=== PATIENT | male | born 1965 | race American Indian/Alaskan Native ===

== ENCOUNTER 2016-04-29 12:08 | Emergency (ER) | payer MEDICAID, OTHER ==
[2016-04-29 12:15] VITALS: RESP 18; TEMP 98.2; BMI 24.8
[2016-04-29] MEDS ORDERED: Aspirin 325 mg EC Tablets PO STA (12:40)
--- NOTE | 2016-04-29 12:41 | ED PDOC ---
Arrival/HPI - General Chief Complaint: Chest Pain Time Seen by Provider: 04/29/16 12:29 Historian: Patient - History of Present Illness Narrative History of Present Illness (Text): 04/29/16 12:38 A 51 year old male, who denies any past medical history, presents to the emergency department complaining of shortness of breath since last night. Patient reports he woke up from his sleep feeling short of breath and chest tightness. Patient reports he has been taking Sudafed and using a nasal spray for a cold. Patient denies any fever, nausea, vomiting, diarrhea, abdominal pain or any other complaints. PMD: Dr. Newton Time/Duration: Other (Last night) Symptom Course: Unchanged Quality: Other Context: Home Associated Symptoms (Text): 04/29/16 13:07 Patient has had a URI for approximately 1 week. He has been taking Sudafed and Afrin spray with little improvement. Last night he developed shortness of breath and anxiety and chest pain. He had a similar episode approximately 8 months ago. No nausea or vomiting. No diaphoresis. No dizziness or lightheadedness. No fever or chills. No injury or trauma. 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 absent: Sputum, Wheezing Cardiovascular: Chest Pain, Other (Chest tightness). absent: Palpitations, Syncope Gastrointestinal: absent: Abdominal Pain, Diarrhea, Nausea, Vomiting Genitourinary Male: absent: Dysuria Neurological: absent: Headache, Dizziness, Focal Weakness Psychiatric: Anxiety. absent: Depression, Suicidal Ideation Physical Exam Vital Signs Reviewed: Yes Vital Signs Temp Pulse Resp BP Pulse Ox 04/29/16 16:38 58 L 18 126/64 100 04/29/16 13:28 54 L 18 128/69 98 04/29/16 12:14 98.2 F 63 18 130/76 99 04/29/16 12:13 98.3 F 77 16 99 Temperature: Afebrile Blood Pressure: Normal Pulse: Regular Respiratory Rate: Normal Appearance: Positive for: Well-Appearing, Non-Toxic, Comfortable, Other (Anxious ) Pain Distress: None Mental Status: Positive for: Alert and Oriented X 3 - Systems Exam Head: Present: Atraumatic, Normocephalic Pupils: Present: PERRL Extroacular Muscles: Present: EOMI Conjunctiva: Present: Normal Ears: Present: NORMAL TM. No: Erythema, Normal Canal (Mild cerumenosis), TM Bulging Mouth: Present: Moist Mucous Membranes Pharnyx: No: ERYTHEMA, EXUDATE, TONSILS ENLARGED, Peritonsilar Swelling Neck: Present: Normal Range of Motion. No: Meningeal Signs, MIDLINE TENDERNESS , Paraspinal Tenderness Respiratory/Chest: Present: Clear to Auscultation, Good Air Exchange. No: Respiratory Distress, Accessory Muscle Use Cardiovascular: Present: Regular Rate and Rhythm, Normal S1, S2. No: Murmurs Abdomen: Present: Normal Bowel Sounds. No: Tenderness, Distention, Peritoneal Signs, Rebound, Guarding Back: Present: Normal Inspection Upper Extremity: Present: Normal Inspection. No: Cyanosis, Edema Lower Extremity: Present: Normal Inspection. No: Edema Neurological: Present: GCS=15, CN II-XII Intact, Speech Normal, Motor Func Grossly Intact Skin: Present: Warm, Dry, Normal Color. No: Rashes Psychiatric: Present: Alert, Oriented x 3, Normal Insight, Normal Concentration , Anxious Medical Decision Making ED Course and Treatment: 04/29/16 12:38 Impression: A 51 year old male with shortness of breath and chest tightness. Plan: -- Chest xray -- EKG -- Labs -- Aspirin -- Reassess and disposition Progress Notes: 04/29/16 13:09 EKG shows normal sinus rhythm rate approximately [address] and T- wave changes similar to EKG of 10/16/2015 Report Date : 04/29/2016 14:22:15 Procedure: Chest xray Dictator : Maya Tate MD IMPRESSION: COPD. No active disease. 04/29/16 15:20 CT scan of the chest is read by the radiologist is negative for pulmonary embolus 04/29/16 16:20 We will repeat troponin and if normal discharge patient 04/29/16 17:09 Second troponin is negative. Patient will be discharged home to follow up with PMD. Follow up in ER as needed. Daily baby aspirin. Prescription for Zithromax and Tessalon. - Lab Interpretations Lab Results: 04/29/16 13:00 04/29/16 13:00 Lab Results 04/29/16 16:30: Troponin I < 0.01 04/29/16 13:00: WBC 6.2, RBC 4.47, Hgb 13.9 L, Hct 39.4 L, MCV 88.1, MCH 31.1, MCHC 35.3, RDW 12.8, Plt Count 251, MPV 9.0, Gran % 75.3 H, Lymph % (Auto) 18.9 L, [place] % (Auto) 4.8, Eos % (Auto) 0.8 L, Baso % (Auto) 0.2, Gran # 4.70, Lymph # 1.2, [place] # 0.3, Eos # 0.1, Baso # 0.01, D-Dimer, Quantitative 0.55 H, Sodium 133, Potassium 4.0, Chloride 96 L, Carbon Dioxide 31, Anion Gap 10, BUN 8, Creatinine 1.0, Est GFR ( Amer) > 60, Est GFR (Non-Af Amer) > 60, Random Glucose 106, Calcium 9.5, Total Bilirubin 0.8, AST 30, ALT 30, Alkaline Phosphatase 64, Lactate Dehydrogenase 405, Total Creatine Kinase 172, Troponin I < 0.01 D, NT-Pro-B Natriuret Pep 138, Total Protein 7.7, Albumin 4.1, Globulin 3.6, Albumin/Globulin Ratio 1.1, Urine Opiates Screen Negative, Urine Methadone Screen Positive H, Ur Barbiturates Screen Negative, Ur Phencyclidine Scrn Negative, Ur Amphetamines Screen Negative, U Benzodiazepines Scrn Negative , U Oth Cocaine Metabols Negative, U Cannabinoids Screen Negative I have reviewed the lab results: Yes - RAD Interpretation Radiology Orders: 04/29/16 12:40 CHEST PORTABLE [RAD] Stat 04/29/16 14:24 ANGIO CHEST PE PROTOCOL [CT] Stat Chest 1 view shows no infiltrate effusion or cardiomegaly Analyst Food And Beverage: ED Physician - Medication Orders Current Medication Orders: Discontinued Medications Aspirin (Ecotrin) 325 mg PO STAT STA Stop: 04/29/16 12:41 Last Admin: 04/29/16 12:52 Dose: 325 MG Iodixanol (Visipaque 320 Mg/Ml 100 Ml) Confirm Administered Dose 100 ml IV .STK- MED ONE Stop: 04/29/16 14:38 - Scribe Statement The provider has reviewed the documentation as recorded by the Lissette Reina Provider Scribe Attestation: All medical record entries made by the Scribe were at my direction and personally dictated by me. I have reviewed the chart and agree that the record accurately reflects my personal performance of the history, physical exam, medical decision making, and the department course for this patient. I have also personally directed, reviewed, and agree with the discharge instructions and disposition. Disposition/Present on Arrival - Present on Arrival Any Indicators Present on Arrival: No History of DVT/PE: No History of Uncontrolled Diabetes: No Urinary Catheter: No History of Decub. Ulcer: No History Surgical Site Infection Following: None - Disposition Have Diagnosis and Disposition been Completed?: Yes Diagnosis: Chest pain, Bronchitis Disposition: HOME/ ROUTINE Disposition Time: 17:10 Patient Plan: Discharge Condition: GOOD Discharge Instructions (ExitCare): Chest Pain (ED), Acute Bronchitis (ED) Additional Instructions: Daily baby aspirin. Follow with PMD. Follow-up in the ER as needed. Prescriptions: Benzonatate [Tessalon Perles] 100 mg PO Q8 #30 sgl Azithromycin [Zithromax] 250 mg PO DAILY #6 tab
[2016-04-29 13:17] LABS: ADD MANUAL DIFF? NO
[2016-04-29 13:23] LABS: BASO # 0.01 K/mm3 (0.0-2.0); BASO % 0.2 % (0.0-3.0); EOS # 0.1 (0.0-0.7); EOS % 0.8 % (1.5-5.0); GRAN % 75.3 % (50.0-68.0); HEMATOCRIT 39.4 % (42.0-52.0); LYMPH # 1.2 (1.2-3.4); LYMPH % 18.9 % (22.0-35.0); MEAN CELL VOLUME 88.1 fL (80.0-105.0); MEAN CORPUSCULAR HEMOGLOBIN 31.1 pg (25.0-35.0); MEAN CORPUSCULAR HGB CONC 35.3 g/dl (31.0-37.0); MONO # 0.3 (0.1-0.6); MONO % 4.8 % (1.0-6.0); PLATELET COUNT 251 10^3/uL (120.0-450.0); RED CELL DISTRIBUTION WIDTH 12.8 % (11.5-14.5); WHITE BLOOD COUNT 6.2 10^3/ul (4.5-11.0)
[2016-04-29 13:38] LABS: ALB/GLOB RATIO 1.1 (1.1-1.8); ALKALINE PHOSPHATASE 64 U/L (38-133); ALT/SGPT 30 U/L (7-56); AST/SGOT 30 U/L (15-59); BILIRUBIN,TOTAL 0.8 mg/dL (0.2-1.3); BLOOD UREA NITROGEN 8 mg/dL (7-21); CALCIUM 9.5 mg/dL (8.4-10.5); CARBON DIOXIDE 31 mmol/L (21-33); CHLORIDE 96 mmol/L (98-107); GFR AFRICAN-AMERICAN > 60; GLUCOSE,RANDOM 106 mg/dL (70-110); SODIUM 133 mmol/L (132-148); TOTAL PROTEIN 7.7 g/dL (5.8-8.3)
[2016-04-29 13:55] LABS: TROPONIN I < 0.01 ng/mL
--- NOTE | 2016-04-29 14:23 | RAD ---
HISTORY: Chest pain COMPARISON: 10/16/2019 FINDINGS: LUNGS: There is pulmonary hyperinflation and peribronchial thickening. There is no focal consolidation. PLEURA: No significant pleural effusion identified, no pneumothorax apparent. CARDIOVASCULAR: Normal. OSSEOUS STRUCTURES: No significant abnormalities. VISUALIZED UPPER ABDOMEN: Normal. OTHER FINDINGS: None. IMPRESSION: COPD. No active disease.
[2016-04-29] MEDS ORDERED: Iodixanol 320 MG/ML 100 ML BOTTLE IV ONE (14:37)
--- NOTE | 2016-04-29 15:16 | CT ---
PROCEDURE: CT Chest with contrast (Pulmonary Angiogram) HISTORY: elevated dimer COMPARISON: None available. TECHNIQUE: Axial computed tomography images were obtained of the chest in the pulmonary arterial phase of enhancement. Coronal and sagittal reformatted images were created and reviewed. Intravenous contrast dose: 100 cc of Visipaque Radiation dose: Total exam DLP = 557 mGy-cm. FINDINGS: PULMONARY ARTERIES: Unremarkable. No pulmonary embolism. AORTA: No acute findings. No thoracic aortic aneurysm. LUNGS: Unremarkable. No nodule, mass or pulmonary consolidation. PLEURAL SPACES: Unremarkable. No effusion or pneuomothorax. HEART: Unremarkable. No cardiomegaly. No significant pericardial effusion. LYMPH NODES: No lymphadenopathy. BONES, CHEST WALL: Unremarkable. No fracture or destructive lesion OTHER FINDINGS: Unremarkable. IMPRESSION: Unremarkable CT pulmonary angiogram. No pulmonary embolus.
[2016-04-29 16:38] VITALS: BP 126/64; PULSE 58; O2SAT 100
--- NOTE | 2016-04-30 09:45 | CARD ---
APPROVED REPORT EKG Measurement Heart [id number] MT [id number] <Conclusion> Normal sinus rhythm with sinus arrhythmia Moderate voltage criteria for LVH LAD STTW changes c/w ischemia No change
== END 2016-04-29 17:39 | disposition home or self-care (01) ==
LOC: ED 12:08
DX: R07.9 Chest pain, unspecified (principal); J40 Bronchitis, not specified as acute or chronic
CPT/HCPCS: 71010; 71275; 80053; 82550; 83615; 83880; 84484; 85025; 85378; 93005; 99283; G0480; Q9967

== ENCOUNTER 2017-05-02 07:19 | Emergency (ER) | payer MEDICAID, OTHER ==
[2017-05-02 07:37] VITALS: BMI 21.5
--- NOTE | 2017-05-02 07:49 | ED PDOC ---
Arrival/HPI - General Time Seen by Provider: 05/02/17 07:22 - History of Present Illness Narrative History of Present Illness (Text): 52 y/o M c no PMHx p/w shortness of breath x 6 days. States symptoms began as cold like symptoms, has been taking OTC medications but intermittently feels that he can not get a deep breath. He reports associated body aches. Denies chest pain, chills, fever, leg swelling, recent travel, surgery, hemoptysis, prior PE/DVT. 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 Neuro: Alert, no focal deficit Vital Signs Pulse Resp BP Pulse Ox 05/02/17 07:34 60 17 144/81 98 Medical Decision Making - RAD Interpretation Radiology Orders: 05/02/17 07:43 CHEST TWO VIEWS (PA/LAT) [RAD] Stat - Medication Orders Current Medication Orders: Discontinued Medications Albuterol/Ipratropium (Duoneb 3 Mg/0.5 Mg (3 Ml) Ud) 3 ml IH STAT STA Stop: 05/02/17 08:26 Last Admin: 05/02/17 08:28 Dose: 3 ml Disposition/Present on Arrival - Present on Arrival Any Indicators Present on Arrival: No History of DVT/PE: No History of Uncontrolled Diabetes: No Urinary Catheter: No History Surgical Site Infection Following: None - Disposition Have Diagnosis and Disposition been Completed?: Yes Diagnosis: Cough Disposition: HOME/ ROUTINE Disposition Time: 08:49 Patient Plan: Discharge Condition: STABLE Discharge Instructions (ExitCare): Viral Upper Respiratory Infection, Adult (DC ) Additional Instructions: Accession No. : [id number] Patient Name / ID : GLENROY CLIFFORD / [id number] Exam Date : 05/02/2017 07:56:59 ( Approved ) Study Comment : Sex / Age : M / 52Y Creator : Nadia Fontaine Dictator : Nadia Fontaine Sat Math Tutor : Body Fitter : Nadia Fontaine Approver2 : Report Date : 05/02/2017 08:42:57 My Comment : HISTORY: cough COMPARISON: 04/29/2016 TECHNIQUE: Chest PA and lateral. CT pulmonary angio study 04/29/2016 FINDINGS: LUNGS: No consolidation. . Top-normal lung volumes. PLEURA: No significant pleural effusion identified. No pneumothorax apparent. CARDIOVASCULAR: Normal. OSSEOUS STRUCTURES: Along the inferior margin of the posterior and inferior left 9th rib there is bony like density focal prominence here could suggested this is difficult to see with certainty on the prior studies. Focal cortical hyperostoses here, sclerotic changes along the inferior medial scapular border are some considerations. The significance, if any is unknown. VISUALIZED UPPER ABDOMEN: Normal. OTHER FINDINGS: None. IMPRESSION: No consolidation. Bony like density along the inferior posterior left 9th rib and inferior medial left scapular border - clinical significance doubtful. The prior CT study remarkable in this area. Prescriptions: Azithromycin [Zithromax] 2 tab PO DAILY #6 tab Referrals: Aneta Newton MD [Primary Care Provider] - Follow up with primary
[2017-05-02] MEDS ORDERED: Albuterol-Ipratrop 3 mg / 0.5 (3 ml) UD IH STA (08:25)
--- NOTE | 2017-05-02 08:44 | RAD ---
HISTORY: cough COMPARISON: 04/29/2016 TECHNIQUE: Chest PA and lateral. CT pulmonary angio study 04/29/2016 FINDINGS: LUNGS: No consolidation. . Top-normal lung volumes. PLEURA: No significant pleural effusion identified. No pneumothorax apparent. CARDIOVASCULAR: Normal. OSSEOUS STRUCTURES: Along the inferior margin of the posterior and inferior left 9th rib there is bony like density focal prominence here could suggested this is difficult to see with certainty on the prior studies. Focal cortical hyperostoses here, sclerotic changes along the inferior medial scapular border are some considerations. The significance, if any is unknown. VISUALIZED UPPER ABDOMEN: Normal. OTHER FINDINGS: None. IMPRESSION: No consolidation. Bony like density along the inferior posterior left 9th rib and inferior medial left scapular border - clinical significance doubtful. The prior CT study remarkable in this area.
[2017-05-02 09:13] VITALS: BP 120/77; PULSE 58; RESP 19; TEMP 98.2; O2SAT 97
--- NOTE | 2017-05-02 09:55 | CARD ---
APPROVED REPORT EKG Measurement Heart [id number] <Conclusion> Sinus bradycardia Cannot rule out Anterior infarct, age undetermined Tall R in V1-RVH.
== END 2017-05-02 09:13 | disposition home or self-care (01) ==
LOC: ED 07:19
DX: R05 Cough (principal); F17.210 Nicotine dependence, cigarettes, uncomplicated